=== PATIENT | male | born 1935 | race Caucasian/White ===

== ENCOUNTER → 2018-05-15 08:33 | Day surgery (SDC) | payer MEDICARE ==
[~2018-05-15 08:33] MED LIST: Heparin 2 UNITS/ML IVPREMIX* 2,000 ML IV ONE; Heparin(*) 1000 UNIT/ML 10 ML VIAL CATH LAB IV ONE; Iohexol 350 (CONTRAST) 200 ML MDV IV ONE; Lidocaine 1% INJ* 10 MG/ML 30 ML SDV ONE; Midazolam* 1 MG/ML 10 ML VIAL (10 MG) ONE; NS 0.9% 1000 ML* 1,000 ML IV SCH; VERAPAMIL 2.5 MG/ML 2 ML VIAL ** 5 mg/2 ml ONE; fentaNYL* 50 MCG/ML 2 ML VIAL (100 MCG VIAL) ONE; nitroGLYCERIN DRIP* 25,000 MCG/250 ML BTL ONE
[2018-05-15 09:45] LABS: EGFR Non-African American 65.1 (>60)
[2018-05-15 10:20] LABS: Hematocrit 44 % (42-52); Mean Corpuscular HGB Conc 34 g/dl (31-36); Mean Corpuscular Hemoglobin 32 pg (27-31); Mean Corpuscular Volume 94 fL (80-94); Mean Platelet Volume 10.5 um3 (7.4-10.4); Platelet Count 163 10^3/ul (150-450); Red Blood Count 4.68 10^6/ul (4.00-5.40); Red Cell Distribution Width 13 % (10.5-15); White Blood Count 5.9 10^3/ul (3.5-10.8)
[2018-05-15 13:59] VITALS: BP 147/88
--- NOTE | 2018-05-18 04:07 | CATH ---
CC: Earl Campbell MD; Dr. Evangelista; Dr. Dominguez * CATH REPORT: DATE OF PROCEDURE: 05/15/18 - [facility] CATH PRIMARY CARE PHYSICIAN: Earl Campbell MD E BUSINESS SPECIALIST: Dr. Evangelista and Dr. Dominguez, [facility]. PROCEDURES: Right radial artery access, bilateral selective coronary cineangiography. HISTORY: An 83-year-old male with symptomatic severe aortic stenosis, referred for coronary angiography prior to TAVR. PROCEDURE ACCESS: Right radial artery sheath 6-F slender. MEDICATIONS: 1. Subcu lidocaine. 2. IV Versed. 3. IV fentanyl. 4. Heparin 3000 units. 5. Verapamil 3 mg. 6. Nitroglycerin 300 mcg. DIAGNOSTIC CATHETER: 5F TIG4. HEMODYNAMICS: Initial AO 101/68. Final BP 137/84. ANGIOGRAPHY: Right forearm. There was some resistance of the J wire, injection showed no stenosis or loop, this was easily traversed with a Wholey wire. RCA: The RCA is large, dominant, with proximal luminal irregularity, mid RCA has some ectasia, the RCA has at most 40% stenosis on a 90-degree bend proximally. The PDA is a small followed by a large posterolateral. Incidentally noted is a heavy calcification of the aortic leaflets. Left Main: The left main is large, short, has no stenosis. LAD: The LAD is large, extends past the apex, supplies the inferoapical segment , supplies a small to moderate first diagonal, the LAD has scattered luminal irregularity, but no significant stenosis. Circumflex: The circumflex is large, not dominant with a small ramus, a large first marginal, and ends with a small posterolateral. The circumflex has no stenosis. CONCLUSION: 1. No significant obstructive coronary artery disease. 2. Normal left-sided hemodynamics. 3. Successful right radial artery access. [id number]/[facility] #: [id number] [facility]
== END | disposition home or self-care (01) ==
LOC: CHICATH 08:33
PROVIDERS: ATTEND Internal Medicine Cardiovascular Disease
DX: I35.0 Nonrheumatic aortic (valve) stenosis (principal); I11.0 Hypertensive heart disease with heart failure; I50.32 Chronic diastolic (congestive) heart failure; R53.83 Other fatigue; Z87.891 Personal history of nicotine dependence
CPT/HCPCS: 36415; 80053; 85027; 93454; 99156; J1644; J2250; J3010

== ENCOUNTER 2018-06-11 11:09 | Emergency (ER) | payer MEDICARE ==
--- OUTSIDE RECORDS SUMMARY | 2018-06-11 11:15 | XMS REPORT ---
:1935 External Reference #:[id number] Author Organization [employer] Address [address] [place] [address] [place] [address] Phone [phone] Care Team Providers Name Role Phone Earl Campbell MD Primary Care Physician Unavailable Payers Type Date Identification Numbers Payment Provider Subscriber Commercial Policy Number: [id number] Aetna Medicare Beto Kirby Group Number: [id number] [address] PayID: [id number] [place] [address] Medigap Part B Expires: 2016 Policy Number: [employer] Insurance Beto Kirby [id number] Group Number: [id number] [address] PayID: [id number] [place] [address] Advance Directives Type Date Description Status Comment Other Directive 04/24/2017 Health Care Proxy Current and Verified Other Directive 04/29/2005 Current and Verified Problems Date Description Provider Status Onset: 04/24/2017 Aortic valve stenosis Earl Campbell M.D., FACP Active Note: Moderate-severe Onset: 04/24/2017 Osteoarthritis of multiple joints Tami Moreno M.D., FACP Onset: 04/24/2017 Rotator cuff syndrome Tami Moreno M.D., FACP Note: RT Onset: 04/24/2017 Insomnia Earl Campbell M.D., FACP Active Onset: 04/24/2011 Diverticulitis of colon Earl Campbell M.D., FACP Active Note: history of Onset: 04/24/2017 Obstructive sleep apnea Earl D. Willard, M.D.,FACP Active syndrome Note: oral device in past Onset: 04/24/2017 Glaucoma Earl Campbell M.D.,FACP Active Onset: 04/24/2017 Ex-smoker Earl Campbell M.D.,FACP Active Note: quit 1977 Onset: 04/24/2017 Raised prostate specific Earl Campbell M.D.,FACP Active antigen Note: 4.8 Onset: 10/27/2017 Metatarsalgia Faustino Ruiz MD Active Onset: 10/27/2017 Tendon contracture Faustino Ruiz MD Active Onset: 10/27/2017 Hammer toe Faustino Ruiz MD Active Onset: 12/05/2017 Asthma Earl Campbell M.D.,FACP Active Note: on PFTs Family History Date Family Member(s) Problem(s) Comments Father due to COPD () Father 73 Mother due to Unknown Causes () Mother 85 Siblings 2 : (age 72 Years) First Brother due to Liver Cancer Onset: (age 81 Years) First Sister Lyme Disease Social History Type Date Description Comments Marital Status Lives With 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 Cigarette Use Former Cigarette Smoker ETOH Use Drinks 2 Alcoholic 1 beer and 1 shot of Beverages Per Day vodka Smoking Patient is a former smoker Recreational Drug Use 04/24/2017 Denies Drug Use Daily Caffeine 04/24/2017 Consumes on average 1 cup double espresso of regular coffee per day Exercise Type/Frequency Moderate exercise gym, 2x/week- 1.5 hours per session General Hx Text 2 kids, alive and well Allergies, Adverse Reactions, Alerts Date Description Reaction Status Severity Comments 04/24/2017 NKDA active Medications Medication Date Status Form Strength Qnty SIG Indications Ordering Provider Imipramine HCL 05/07 Active Tablets 25mg 45tab 1/2-1 tab s po qhs prn Demi Campbell, insomnia Jaswant,FACP Proventil HFA 12/05 Active Aerosol 108(90Bas 18uni inhale two e) ts puffs by Demi Campbell, mcg/Act mouth four M.DElsi,FACP times a day as needed Shingrix 11/28 Active Suspension 50mcg 2unit 0.5 2018 Rec s milliliters beatris Booneuscaryan Michaud,FACP ar now and 2-3 months later repeat Toprol XL 06/27 Active Tablets ER 25mg 90tab 1 by mouth I35.0 Tania 24HR s every day Jaswant Brown [place]-3 & 04/24 Active Chewtabs 117-100mg daily Earl Vitamin D3 /2017 -Unit Delisa Boone M.D.,FACP Vitamin B12 Active Tablets ER 1000mcg 1 by mouth Unknown /0000 every other day Flax Seed Oil Active Capsules 1000mg 1 by mouth Unknown /0000 every day Vitamin C Plus Active Tablets 1000mg 1 by mouth Unknown /0000 every day Ginseng Active Capsules 250mg daily Unknown /0000 Centrum Silver Active Tablets Adult 50 1 by mouth Unknown Adult 50+ /0000 every day Aspirin Active Tablets DR 81mg 1 by mouth Unknown /0000 every day Turmeric Active Capsules 450mg daily Unknown /0000 Glucosamine Active Capsules 1500Com 1 cap by Unknown Chondroitin 1500 /0000 mouth every Complex day Probiotic Active Capsules 1 by mouth Unknown /0000 every day Tums Active Chewtabs 500mg 1-2 Unknown /0000 chewtabs by mouth as needed, Betaxolol HCL Active Solution 0.5% 1 drop both Unknown /0000 eyes daily Latanoprost Active Solution 0.005% one drop Unknown /0000 daily in each eye CBD Oil Active 20mg capsule Unknown /0000 daily Valerian Root Active Capsules 250mg 1 cap po Unknown /0000 daily Diphenhydramine Active Capsules 25mg one capsule Unknown HCL /0000 as needed for sleep Magnesium Oxide Active Tablets 400mg 1 by mouth Unknown /0000 every day Clopidogrel Active Tablets 75mg Take One Unknown Bisulfate /0000 Tablet By Mouth Every Day Pantoprazole Active Tablets DR 40mg Take One Unknown Sodium /0000 Tablet By Mouth Every Day Tylenol Active Capsules 325mg 2 tablets Unknown /0000 po at bedtime Cod Liver Oil Active 1 cap po Unknown /0000 daily Garlic Active 1 tablet po Unknown /0000 daily Doxycycline 05/22 Hx Tablets 100mg 20tab 1 by mouth Earl Hyclate s twice a day Demi Campbell - Jaswant,[facility] 12/29 Levitra 10/30 Hx Tablets 10mg 14tab by mouth F52.21 s every day Demi Campbell, - as needed M.D.,[facility] 11/30 Rozerem 10/30 Hx Tablets 8mg 30tab 1 by mouth F51.01 s every night Demi Campbell, - at bedtime Jaswant,[facility] 11/30 as needed /2017 for insomnia Saw Gunpowder 10/30 Hx Capsules 450mg 60cap 1 by mouth R97.20 s twice a day Demi Campbell, - Jaswant,[facility] 11/30 Amoxicillin/Clav 09/12 Hx Tablets 875-125mg 20tab by mouth J01.10 Beto Froilan ulanate s twice a day Demi Campbell, Potassium - Jaswant,[facility] 09/22 Mucinex DM 09/12 Hx Tablets ER 30-600mg 14tab 1 by mouth 12HR s twice a day Demi Campbell, - as needed M.D.,[facility] 05/07 [place] 3 Hx Capsules 1000mg 1 tab by Unknown /0000 mouth every - day 05/07 Calcium Hx Tablets 300-300mg daily Unknown Magnesium 750 /0000 - 10/30 Trazodone HCL Hx Tablets 100mg 90tab 1 tabs by Earl / s mouth as Demi Campbell, - needed for M.D.,[facility] 05/07 sleep Advil Hx Capsules 200mg 1-2 bid as Unknown /0000 needed (pt - takes 2 06/06 night) Benadryl Allergy Hx Capsules 25mg as needed F51.01 Unknown /0000 (pt takes 1 - every 10/30 night) /2017 Immunizations CPT Code Status Date Vaccine Lot # [id number] Given 05/07/2018 Influenza Virus Vaccine, Quadrivalent, Split, [id number] Preservative Free 44999 Given 10/30/2017 Pneumococcal Conjugate Vaccine 13 Valent For [id number] Intramuscular Use 18483 Given 04/24/2017 Influenza Virus Vaccine, Quadrivalent, Split, [id number] Preservative Free 16462 Given 04/05/2010 Tetanus And Diptheria (Td) For Adult Use Preservative Free 18003 Given 09/14/2007 Pneumonia Vaccine Vital Signs Date Vital Result Comment 06/07/2018 Height 67.5 inches 5'7.50" Weight 171.00 lb with shoes Heart Rate 82 /min BP Systolic Sitting 128 mmHg Lue reg cuff BP Diastolic Sitting 80 mmHg Lue reg cuff BP Systolic Standing 124 mmHg Lue reg cuff BP Diastolic Standing 80 mmHg Lue reg cuff Respiratory Rate 16 /min BMI (Body Mass Index) 26.4 kg/m2 05/11/2018 Height 67.5 inches 5'7.50" Weight 171.00 lb w/ shoes Heart Rate 70 /min BP Systolic Sitting 128 mmHg lue lg cuff BP Diastolic Sitting 70 mmHg lue lg cuff BP Systolic Standing 122 mmHg lue lg cuff BP Diastolic Standing 68 mmHg lue lg cuff BMI (Body Mass Index) 26.4 kg/m2 Ejection Fraction no echo/ss 05/07/2018 Height 67.5 inches 5'7.50" Weight 172.25 lb Heart Rate 73 /min BP Systolic Sitting 100 mmHg BP Diastolic Sitting 66 mmHg Body Temperature 98.6 F O2 % BldC Oximetry 95 % BMI (Body Mass Index) 26.6 kg/m2 02/02/2018 Height 67.5 inches 5'7.50" Weight 171.00 lb w/ shoes Heart Rate 80 /min BP Systolic Sitting 110 mmHg lue lg cuff BP Diastolic Sitting 66 mmHg lue lg cuff BP Systolic Standing 104 mmHg lue lg cuff BP Diastolic Standing 66 mmHg lue lg cuff Respiratory Rate 18 /min BMI (Body Mass Index) 26.4 kg/m2 Ejection Fraction 55-60% Shlomo 12/14/17 01/01/2018 Height 67.5 inches 5'7.50" Weight 176.00 lb BP Systolic 116 mmHg BP Diastolic 62 mmHg Respiratory Rate 16 /min Body Temperature 98.2 F Pain Level 0 BMI (Body Mass Index) 27.2 kg/m2 12/19/2017 Height 67.5 inches 5'7.50" Weight 176.00 lb Heart Rate 79 /min BP Systolic Sitting 120 mmHg BP Diastolic Sitting 68 mmHg Body Temperature 98.9 F O2 % BldC Oximetry 95 % BMI (Body Mass Index) 27.2 kg/m2 12/01/2017 Height 67.5 inches 5'7.50" Weight 174.00 lb w/shoes Heart Rate 76 /min BP Systolic Sitting 118 mmHg lue reg cuff BP Diastolic Sitting 78 mmHg lue reg cuff BP Systolic Standing 122 mmHg lue reg cuff BP Diastolic Standing 82 mmHg lue reg cuff Respiratory Rate 18 /min BMI (Body Mass Index) 26.8 kg/m2 Ejection Fraction >70% echo 10/09/17 10/30/2017 Height 67.5 inches 5'7.50" Weight 175.00 lb Heart Rate 73 /min BP Systolic Sitting 100 mmHg BP Diastolic Sitting 60 mmHg Body Temperature 98.0 F O2 % BldC Oximetry 96 % BMI (Body Mass Index) 27.0 kg/m2 10/27/2017 Height 69 inches 5'9" Weight 179.00 lb BP Systolic 124 mmHg BP Diastolic 68 mmHg Respiratory Rate 20 /min Body Temperature 98.2 F Pain Level 5 BMI (Body Mass Index) 26.4 kg/m2 09/12/2017 Weight 179.00 lb Heart Rate 75 /min BP Systolic Sitting 118 mmHg BP Diastolic Sitting 70 mmHg Body Temperature 98.2 F O2 % BldC Oximetry 95 % 07/28/2017 Height 69 inches 5'9" Weight 174.00 lb without shoes Heart Rate 90 /min BP Systolic Sitting 114 mmHg Rue reg cuff BP Diastolic Sitting 78 mmHg Rue reg cuff BP Systolic Standing 110 mmHg Rue reg cuff BP Diastolic Standing 80 mmHg Rue reg cuff Respiratory Rate 17 /min BMI (Body Mass Index) 25.7 kg/m2 Ejection Fraction 70-75% date 10/20/16 ECHO 05/19/2017 Height 69 inches 5'9" Weight 173.00 lb w/ shoes Heart Rate 68 /min reg BP Systolic 108 mmHg Rue, reg cuff BP Diastolic 60 mmHg Rue, reg cuff BP Systolic Sitting 110 mmHg Lue, reg cuff BP Diastolic Sitting 64 mmHg Lue, reg cuff BP Systolic Standing 144 mmHg Lue BP Diastolic Standing 60 mmHg Lue Respiratory Rate 16 /min BMI (Body Mass Index) 25.5 kg/m2 Ejection Fraction 70-75% as of 10/20/2016 echo 04/24/2017 Height 69 inches 5'9" Weight 173.38 lb Heart Rate 90 /min BP Systolic Sitting 114 mmHg BP Diastolic Sitting 68 mmHg Body Temperature 98.5 F O2 % BldC Oximetry 96 % BMI (Body Mass Index) 25.6 kg/m2 Results Test Date Test Result H/L Range Note CBC No Diff 05/29/2018 White Blood Count 7.3 10^3/uL 3.5-10.8 Red Blood Count 3.84 10^6/uL Low 4.00-5.40 Hemoglobin 12.4 g/dL Low 14.0-18.0 Hematocrit 36 % Low 42-52 Mean Corpuscular Volume 94 fL 80-94 Mean Corpuscular Hemoglobin 32 pg High 27-31 Mean Corpuscular HGB Conc 35 g/dL 31-36 Red Cell Distribution Width 13 % 10.5-15 Platelet Count 111 10^3/uL Low 150-450 Mean Platelet Volume 10.6 um3 High 7.4-10.4 Comp Metabolic Panel 05/15/2018 Sodium 135 mmol/L 135-145 Chloride 104 mmol/L 101-111 Co2 Carbon Dioxide 29 mmol/L 22-32 Glucose 100 mg/dL 70-100 Blood Urea Nitrogen 15 mg/dL 6-24 Creatinine 1.08 mg/dL 0.67-1.17 BUN/Creatinine Ratio 13.9 8-20 Calcium 9.9 mg/dL 8.6-10.3 Total Protein 6.8 g/dL 6.4-8.9 Albumin 4.3 g/dL 3.2-5.2 Globulin 2.5 g/dL 2-4 Albumin/Globulin Ratio 1.7 1-3 Total Bilirubin 0.80 mg/dL 0.2-1.0 Alkaline Phosphatase 47 U/L 34-104 Alt 13 U/L 7-52 Egfr Non- 65.1 >60 Egfr 78.8 >60 1 Potassium 4.6 mmol/L 3.5-5.0 Anion Gap 2 mmol/L 2-11 Ast 25 U/L 13-39 CBC No Diff 05/15/2018 White Blood Count 5.9 10^3/uL 3.5-10.8 Red Blood Count 4.68 10^6/uL 4.00-5.40 Hemoglobin 15.0 g/dL 14.0-18.0 Hematocrit 44 % 42-52 Mean Corpuscular Volume 94 fL 80-94 Mean Corpuscular Hemoglobin 32 pg High 27-31 Mean Corpuscular HGB Conc 34 g/dL 31-36 Red Cell Distribution Width 13 % 10.5-15 Platelet Count 163 10^3/uL 150-450 Mean Platelet Volume 10.5 um3 High 7.4-10.4 Laboratory test finding 11/02/2017 Vitamin B12 957 pg/mL High 180-914 2 TSH (Thyroid Stim Horm) 2.89 mcIU/mL 0.34-5.60 3 PSA Diagnostic 5.718 ng/mL High 0-4.000 4 Comp Metabolic Panel 11/02/2017 Sodium 139 mmol/L 139-145 Potassium 4.6 mmol/L 3.5-5.0 Chloride 105 mmol/L 101-111 Co2 Carbon Dioxide 28 mmol/L 22-32 Anion Gap 6 mmol/L 2-11 Glucose 94 mg/dL 70-100 Blood Urea Nitrogen 17 mg/dL 6-24 Creatinine 1.03 mg/dL 0.67-1.17 BUN/Creatinine Ratio 16.5 8-20 Calcium 10.2 mg/dL 8.6-10.3 Total Protein 6.2 g/dL Low 6.4-8.9 Albumin 4.1 g/dL 3.2-5.2 Globulin 2.1 g/dL 2-4 Albumin/Globulin Ratio 2.0 1-3 Total Bilirubin 0.70 mg/dL 0.2-1.0 Alkaline Phosphatase 53 U/L 34-104 Alt 12 U/L 7-52 Ast 17 U/L 13-39 Egfr Non- 69.0 >60 Egfr 88.7 >60 5 Lipid Profile (Trig/Chol/HDL) 11/02/2017 Triglycerides 72 mg/dL 6 Cholesterol 180 mg/dL 7 HDL Cholesterol 52.6 mg/dL 8 LDL Cholesterol 113 mg/dL 9 1 Because ethnic data is not always readily available, this report includes an eGFR for both -Americans and non- Americans. The National Kidney Disease Education Program (NKDEP) does not endorse the use of the MDRD equation for patients that are not between the ages of 18 and 70, are , have extremes of body size, muscle mass, or nutritional status, or are non- or non-. According to the National Kidney Foundation, irrespective of diagnosis, the stage of the disease is based on the level of kidney function: Stage Description GFR(mL/min/1.73 m(2)) 1 Kidney damage with normal or decreased GFR 90 2 Kidney damage with mild decrease in GFR 60-89 3 Moderate decrease in GFR 30-59 4 Severe decrease in GFR 15-29 5 Kidney failure <15 (or dialysis) 2 Normal Range 180 to 914 Indeterminate Range 145 to 180 Deficient Range <145 3 FASTING 10 HOUR Copy Result to: [facility] ([id number]) 4 Serum levels of PSA measured using the Velma Compumatrix DXI Hybritech immunoassay should not be interpreted as absolute evidence of the presence or absence of disease. The PSA value should be used in conjunction with other pertinent clinical diagnostic procedures. The values obtained with different assay methods or kits cannot be used interchangeably. 5 Because ethnic data is not always readily available, this report includes an eGFR for both -Americans and non- Americans. The National Kidney Disease Education Program (NKDEP) does not endorse the use of the MDRD equation for patients that are not between the ages of 18 and 70, are , have extremes of body size, muscle mass, or nutritional status, or are non- or non-. According to the National Kidney Foundation, irrespective of diagnosis, the stage of the disease is based on the level of kidney function: Stage Description GFR(mL/min/1.73 m(2)) 1 Kidney damage with normal or decreased GFR 90 2 Kidney damage with mild decrease in GFR 60-89 3 Moderate decrease in GFR 30-59 4 Severe decrease in GFR 15-29 5 Kidney failure <15 (or dialysis) 6 Desirable: <150 Borderline High: 150-199 High: 200-499 Very High: >500 7 Desirable: <200 Borderline High: 200-239 High: >239 8 Low: <40 Desirable: 40-60 High: >60 9 Desirable: <100 Near Optimal: 100-129 Borderline High: 130-159 High: 160-189 Very High: >189 Procedures Date CPT Code Description Status 05/15/2018 49690 Cath PLMT&NJX L Ventriculog Img S&I Completed 01/16/2018 09518 ECHO Stress Test Incl Perf Contiuous ekg Monitoring Completed W/Phys Superv 12/14/2017 35215 Moderate Sedation Services; Same Phys Intl 15 Mins; PT Completed >=5 Years 12/14/2017 44152 Color Flow Doppler/Interp & Reprt Completed 12/14/2017 30578 Pulse Wave/Continuous-Interp.RPT Completed 12/14/2017 62212 Echocardiography, Transesophageal, Real Time W/Image 2D Completed W/W/O M-M 12/04/2017 53355 Diffusing Capacity Completed 12/04/2017 26850 Plethysmography Determination Lung Volumes & Per Airway Completed Resist 12/04/2017 64668 Pulmonary Function><Bronchodil Completed 10/09/2017 41925 ECHO Transthoracic, Real-Time 2D With Doppler And Color Completed Flow 10/09/2017 85213 ECHO Transthoracic, Real-Time 2D With Doppler And Color Completed Flow 06/27/2017 99904 Stress Test Completed 05/19/2017 84001 EKG Tracing & Interpretation Completed 10/20/2016 75515 ECHO Transthoracic, Real-Time 2D With Doppler And Color Completed Flow 10/30/2015 32828 ECHO Transthoracic, Real-Time 2D With Doppler And Color Completed Flow 10/20/2014 39986 ECHO Transthoracic, Real-Time 2D With Doppler And Color Completed Flow Encounters Type Date Location Provider CPT E/M Dx Office Visit 06/07/2018 4:20p [facility] Tania Brown M.D. 31094 I35.0 [facility] Z95.2 R00.1 Office Visit 05/11/2018 9:20a [facility] Brown M.D. 19000 I35.0 [facility] [place] [facility] [place] R53.83 Office Visit 05/07/2018 10:20a [facility] Internal Medicine Earl Campbell, 92918 I35.0 - Humphrey Toscano M.D.,FACP S20.362A H90.3 J45.20 K57.32 M20.41 K40.90 Z23 Office Visit 02/02/2018 10:20a [facility] Tania Brown M.D. 41577 I35.0 [facility] [place] R53.83 Office Visit 01/01/2018 10:15a [facility] [place] [address] M77.41 C.M.A. M20.41 M67.01 Office Visit 12/19/2017 3:40p [facility] Internal Medicine Earl Campbell, 19835 J01.10 - Benita Michaud,FACP I35.0 Office Visit 12/01/2017 10:20a [facility] Tania Brown M.D. 99165 I35.0 [facility] [place] Office Visit 10/30/2017 10:20a [facility] Internal Medicine Earl Campbell, 36776 Z00.00 - Humphrey Toscano M.D.,FACP M77.41 I35.0 F51.01 R97.20 F52.21 R05 Z23 Z00.01 Office Visit 10/27/2017 10:00a [facility] [place] [address] M77.41 C.M.A. M67.01 M20.41 Office Visit 09/12/2017 1:40p [facility] Internal Medicine Earl Campbell, 27684 J01.10 - Benita Michaud,FACP Office Visit 07/28/2017 10:30a [facility] CHASITY Alejo 38045 I35.0 [facility] Office Visit 05/19/2017 9:40a [facility] Tania Brown M.D. 74132 I35.0 [facility] AT [facility] [place] Office Visit 04/24/2017 10:20a [facility] Internal Medicine Earl Campbell, 08204 I35.0 - Humphrey Toscano M.D.,FACP F51.01 M19.019 Z23 Plan of Care Future Appointment(s):06/29/2018 9:00 am - Nurse Visit IC at [facility] [place]/25/2018 1:00 pm - Ica ECHO Schedule at [facility]10/15/2018 10:20 am - Earl Campbell M.D.,FACP at [facility] Internal Medicine - [address]06/07/2018 - Tania Brown M.D.I35.0 Nonrheumatic aortic (valve) stenosisComments:Option of referral to cardiac rehab, call if you want to do this.OK to resume exercise gradually.Z95.2 Presence of prosthetic heart valveComments:Good function on exam, no leak heard.Follow up:Keep echo as scheduled and f/u with me after echo.Recommendations:Continue ASA and Plavix as directed by Dr Dominguez.R00.1 Bradycardia, unspecifiedComments:Normal pulse rate today, await event monitor data.
--- OUTSIDE RECORDS SUMMARY | 2018-06-11 11:15 | XMS REPORT ---
:1935 External Reference #:[id number] Author Organization [employer] Address [address] [place] [address] [place] [address] Phone [phone] Care Team Providers Name Role Phone Earl Campbell MD Primary Care Physician Unavailable Payers Type Date Identification Numbers Payment Provider Subscriber Commercial Policy Number: [id number] Aetna Medicare Beto Kirby Group Number: [id number] [address] PayID: [id number] [place] [address] Medigap Part B Expires: 2016 Policy Number: Aetna Insurance Beto Kirby [id number] Group Number: [id number] [address] PayID: [id number] [place] [address] Advance Directives Type Date Description Status Comment [...] Onset: 04/24/2017 Obstructive sleep apnea Earl D. [place], M.D.,FACP Active syndrome Note: oral device in [...] Marital Status Lives With Occupation Retired Occupation Grants Administrator Occupation Professor Cigarette Use Former Cigarette Smoker [...] four M.DElsi,FACP times a day as needed Toprol XL 06/27 Active Tablets ER 25mg 90tab 1 by mouth I35.0 Tania /2016 24HR s every day Jaswant Brown [place]-3 & 04/24 Active Chewtabs 117-100mg daily Earl Vitamin D3 /2017 -Unit Delisa Boone M.D.,[facility] Vitamin B12 Active Tablets ER 1000mcg 1 [...] Unknown /0000 chewtabs by mouth as needed, Latanoprost Active Solution 0.005% one drop Unknown /0000 daily in each eye CBD Oil Active 20mg capsule Unknown /0000 daily Valerian Root Active Capsules 250mg 1 cap po Unknown /0000 daily Magnesium Oxide Active Tablets 400mg 1 by mouth Unknown /0000 every day Clopidogrel Active Tablets 75mg Take One Unknown Bisulfate /0000 Tablet By Mouth Every Day Pantoprazole Active Tablets DR 40mg Take One Unknown Sodium /0000 Tablet By Mouth Every Day Cod Liver Oil Active 1 cap po Unknown /0000 daily Garlic Active 1 tablet po Unknown /0000 daily Coq10 Active Capsules 100mg take 1 by Unknown /0000 mouth 3 x week Vitamin C Plus Active Tablets 1000mg 1 by mouth Unknown /0000 every day Trazodone HCL Active Tablets 100mg as needed Unknown /0000 Advil Active Tablets 200mg 2 tabs 2 Unknown /0000 times a day as needed Doxycycline 12/19 Hx Tablets 100mg 20tab 1 by mouth Earl Gastelum /2017 s twice a day Brenden Boone M.D.,FACP 12/29 Shingrix 11/28 Hx Suspension 50mcg 2unit 0.5 Rec s milliliters Demi Campbell, intramuscul MJose Daniel,[facility] ar now and 2-3 months later repeat Levitra 10/30 Hx Tablets 10mg 14tab by mouth F52.21 s every day Demi Campbell, - as needed M.D.,[facility] 11/30 Rozerem 10/30 Hx Tablets 8mg 30tab 1 by mouth F51.01 s every night Demi Campbell, - at bedtime Wisam.Demi,[facility] 11/30 as needed for insomnia Saw Kidder 10/30 Hx Capsules 450mg 60cap 1 by mouth R97.20 s twice a day Demi Campbell, - M.Demi,[facility] 11/30 Amoxicillin/Clav 09/12 Hx Tablets 875-125mg 20tab by mouth J01.10 ulanate s twice a day Demi Campbell, Potassium - Jaswant,[facility] 09/22 Mucinex DM 09/12 Hx Tablets ER 30-600mg 14tab 1 by mouth 12HR s twice a day Demi Campbell, - as needed M.D.,[facility] 05/07 [place] 3 Hx Capsules 1000mg 1 tab by Unknown /0000 mouth every - day 05/07 Calcium Hx Tablets 300-300mg daily Unknown Magnesium 750 /0000 - 10/30 Vitamin C Plus Hx Tablets 1000mg 1 by mouth Unknown /0000 every day Trazodone HCL Hx Tablets 100mg 90tab 1 tabs by / s mouth as Demi Campbell, - needed for M.D.,[facility] 05/07 sleep Advil Hx Capsules 200mg 1-2 bid as Unknown /0000 needed (pt - takes 2 06/06 night) Benadryl Allergy Hx Capsules 25mg as needed F51.01 Unknown /0000 (pt takes 1 - every 10/30 night) Betaxolol HCL Hx Solution 0.5% 1 drop both Unknown /0000 eyes daily Diphenhydramine Hx Capsules 25mg one capsule Unknown HCL /0000 as needed for sleep Tylenol 00/00 Hx Capsules 325mg 2 tablets Unknown /0000 po at bedtime Immunizations CPT Code Status Date Vaccine Lot # [id number] Given 05/07/2018 Influenza Virus Vaccine, Quadrivalent, Split, [id number] Preservative Free 89517 Given 10/30/2017 Pneumococcal Conjugate Vaccine 13 Valent For [id number] Intramuscular Use 80500 Given 04/24/2017 Influenza Virus Vaccine, Quadrivalent, Split, [id number] Preservative Free 79256 Given 04/05/2010 Tetanus And Diptheria (Td) For Adult Use Preservative Free 12428 Given 09/14/2007 Pneumonia Vaccine Vital Signs Date Vital Result Comment 06/08/2018 Height 67.5 inches 5'7.50" Weight 171.00 lb Heart Rate 72 /min BP Systolic 130 mmHg BP Diastolic 72 mmHg Respiratory Rate 18 /min Body Temperature 98.7 F BMI (Body Mass Index) 26.4 kg/m2 06/07/2018 Height 67.5 inches 5'7.50" Weight 171.00 [...] Mean Platelet Volume 10.6 um3 High 7.4-10.4 CBC No Diff 05/15/2018 White Blood Count 5.9 10^3/uL 3.5-10.8 Red Blood Count 4.68 10^6/uL 4.00-5.40 Hemoglobin 15.0 g/dL 14.0-18.0 Hematocrit 44 % 42-52 Mean Corpuscular Volume 94 fL 80-94 Mean Corpuscular Hemoglobin 32 pg High 27-31 Mean Corpuscular HGB Conc 34 g/dL 31-36 Red Cell Distribution Width 13 % 10.5-15 Platelet Count 163 10^3/uL 150-450 Mean Platelet Volume 10.5 um3 High 7.4-10.4 Comp Metabolic Panel 05/15/2018 [...] 2 mmol/L 2-11 Ast 25 U/L 13-39 Laboratory test finding 11/02/2017 Vitamin B12 957 [...] 3 FASTING 10 HOUR Copy Result to: TANIA BROWN ([id number]) 4 Serum levels of PSA measured using the [employer] DXI Hybritech immunoassay should not be interpreted [...] Procedures Date CPT Code Description Status 05/15/2018 95192 Cath PLMT&NJX L Ventriculog Img S&I Completed 01/16/2018 21160 ECHO Stress Test Incl Perf Contiuous ekg Monitoring Completed W/Phys Superv 12/14/2017 17050 Moderate Sedation Services; Same Phys Intl 15 Mins; PT Completed >=5 Years 12/14/2017 70280 Color Flow Doppler/Interp & Reprt Completed 12/14/2017 91557 Pulse Wave/Continuous-Interp.RPT Completed 12/14/2017 38487 Echocardiography, Transesophageal, Real Time W/Image 2D Completed W/W/O M-M 12/04/2017 53905 Diffusing Capacity Completed 12/04/2017 30247 Plethysmography Determination Lung Volumes & Per Airway Completed Resist 12/04/2017 95526 Pulmonary Function><Bronchodil Completed 10/09/2017 93610 ECHO Transthoracic, Real-Time 2D With Doppler And Color Completed Flow 10/09/2017 14711 ECHO Transthoracic, Real-Time 2D With Doppler And Color Completed Flow 06/27/2017 81573 Stress Test Completed 05/19/2017 98289 EKG Tracing & Interpretation Completed 10/20/2016 45909 ECHO Transthoracic, Real-Time 2D With Doppler And Color Completed Flow 10/30/2015 74305 ECHO Transthoracic, Real-Time 2D With Doppler And Color Completed Flow 10/20/2014 42372 ECHO Transthoracic, Real-Time 2D With Doppler And Color Completed Flow Encounters Type Date Location Provider CPT E/M Dx Office Visit 05/11/2018 9:20a [facility] Loev Brown M.D. 30844 I35.0 [facility] [place] [facility] [place] Visit 05/07/2018 10:20a [facility] Internal Medicine Earl Campbell, 03004 I35.0 - [place] Everton Michaud,FACP S20.362A H90.3 J45.20 K57.32 M20.41 K40.90 Z23 Office Visit 02/02/2018 10:20a [facility] Of Tania Brown M.D. 93035 I35.0 [facility] [place] [facility] [place] Office Visit 01/01/2018 10:15a [facility] [place] [address] M77.41 C.M.A. M20.41 M67.01 Office Visit 12/19/2017 3:40p [facility] Internal Medicine Earl Campbell, 38163 J01.10 - Benita Michaud,FACP I35.0 Office Visit 12/01/2017 10:20a [facility] Of Tania Brown M.D. 98942 I35.0 [facility] [place] [facility] [place] 10/30/2017 10:20a [facility] Internal Medicine Earl Campbell, 92262 Z00.00 - [place] Everton Michaud,FACP M77.41 I35.0 F51.01 R97.20 F52.21 R05 Z23 Z00.01 Office Visit 10/27/2017 10:00a [facility] [place] [address] M77.41 C.M.A. M67.01 M20.41 Office Visit 09/12/2017 1:40p [facility] Internal Medicine Earl Campbell, 23446 J01.10 - Benita Michaud,FACP Office Visit 07/28/2017 10:30a [facility] Of CHASITY Alejo 17335 I35.0 [facility] Office Visit 05/19/2017 9:40a [facility] Of Tania Brown M.D. 43863 I35.0 [facility] [place] [facility] [place] 04/24/2017 10:20a [facility] Internal Medicine Earl Campbell, 51342 I35.0 - [place] Ever[place] Michaud,FACP F51.01 M19.019 Z23 Plan of Care Future Appointment(s):06/29/2018 9:00 am - Nurse Visit IC at [facility] [place] [facility] [place] 1:00 pm - Ica ECHO Schedule at [facility]10/15/2018 10:20 am - Earl Campbell M.D.,FACP at [facility] Internal Medicine - [address]06/08/2018 - Shubham Perez, MDR22.9 Localized swelling, mass and lump, unspecifiedNew Xrays:US Soft Tissue
--- OUTSIDE RECORDS SUMMARY | 2018-06-11 11:15 | XMS REPORT ---
:1935 External Reference #:[id number] Author Organization [employer] Address [address] [place] [address] [place] [address] Phone [phone] Care Team Providers Name Role Phone Earl Campbell MD Primary Care Physician Unavailable Payers Type Date Identification Numbers Payment Provider Subscriber Commercial Policy Number: MEBMSLTT Aetna Medicare Beto Kirby Group Number: [id number] [address] PayID: [id number] [place] [address] Medigap Part B Expires: 2016 Policy Number: Aetna Insurance Beto Kirby [id number] Group Number: [id number] [address] PayID: [id number] [place] [address] Advance Directives Type Date Description Status Comment [...] Onset: 04/24/2017 Obstructive sleep apnea Earl D. 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 Use Former Cigarette Smoker [...] Tania 24HR s every day Jaswant Brown [place]-3 & 04/24 Active Chewtabs 117-100mg daily Earl [...] s twice a day Demi Campbell - Jaswant,[facility] 12/29 Levitra 10/30 Hx Tablets 10mg 14tab by mouth F52.21 s every day Demi Campbell, - as needed M.D.,[facility] 11/30 Rozerem 10/30 Hx Tablets 8mg 30tab 1 by mouth F51.01 s every night Demi Campbell, - at bedtime Jaswant,[facility] 11/30 as needed /2017 for insomnia Saw Carlisle 10/30 Hx Capsules 450mg 60cap 1 by mouth R97.20 s twice a day Demi Campbell, - Jaswant,[facility] 11/30 Amoxicillin/Clav 09/12 Hx Tablets 875-125mg 20tab by mouth J01.10 Beto Froilan ulanate s twice a day Demi Campbell, Potassium - Jaswant,[facility] 09/22 Mucinex DM 09/12 Hx Tablets ER 30-600mg 14tab 1 by mouth 12HR s twice a day Demi Campbell, - as needed M.D.,[facility] 05/07 [place] 3 Hx Capsules 1000mg 1 tab by Unknown /0000 mouth every - day 05/07 Calcium Hx Tablets 300-300mg daily Unknown Magnesium 750 /0000 - 10/30 Trazodone HCL Hx Tablets 100mg 90tab 1 tabs by Earl / s mouth as Demi Campbell, - needed for M.D.,[facility] 05/07 sleep Advil Hx Capsules 200mg 1-2 bid as Unknown /0000 needed (pt - takes 2 06/06 night) Benadryl Allergy Hx Capsules 25mg as needed F51.01 Unknown /0000 (pt takes 1 - every 10/30 night) /2017 Immunizations CPT Code Status Date Vaccine Lot # [id number] Given 05/07/2018 Influenza Virus Vaccine, Quadrivalent, Split, [id number] Preservative Free 20756 Given 10/30/2017 Pneumococcal Conjugate Vaccine 13 Valent For [id number] Intramuscular Use 50021 Given 04/24/2017 Influenza Virus Vaccine, Quadrivalent, Split, [id number] Preservative Free 90578 Given 04/05/2010 Tetanus And Diptheria (Td) For Adult Use Preservative Free 05514 Given 09/14/2007 Pneumonia Vaccine Vital Signs Date [...] 10 HOUR Copy Result to: VAN BROWNN ([id number]) 4 Serum levels of PSA measured using the [employer] DXI Hybritech immunoassay should not be interpreted [...] Procedures Date CPT Code Description Status 05/15/2018 84412 Cath PLMT&NJX L Ventriculog Img S&I Completed 01/16/2018 65124 ECHO Stress Test Incl Perf Contiuous ekg Monitoring Completed W/Phys Superv 12/14/2017 75480 Moderate Sedation Services; Same Phys Intl 15 Mins; PT Completed >=5 Years 12/14/2017 51894 Color Flow Doppler/Interp & Reprt Completed 12/14/2017 80510 Pulse Wave/Continuous-Interp.RPT Completed 12/14/2017 42775 Echocardiography, Transesophageal, Real Time W/Image 2D Completed W/W/O M-M 12/04/2017 62165 Diffusing Capacity Completed 12/04/2017 99586 Plethysmography Determination Lung Volumes & Per Airway Completed Resist 12/04/2017 66996 Pulmonary Function><Bronchodil Completed 10/09/2017 02399 ECHO Transthoracic, Real-Time 2D With Doppler And Color Completed Flow 10/09/2017 49181 ECHO Transthoracic, Real-Time 2D With Doppler And Color Completed Flow 06/27/2017 09801 Stress Test Completed 05/19/2017 41611 EKG Tracing & Interpretation Completed 10/20/2016 39602 ECHO Transthoracic, Real-Time 2D With Doppler And Color Completed Flow 10/30/2015 64664 ECHO Transthoracic, Real-Time 2D With Doppler And Color Completed Flow 10/20/2014 26604 ECHO Transthoracic, Real-Time 2D With Doppler And Color Completed Flow Encounters Type Date Location Provider CPT E/M Dx Office Visit 05/11/2018 9:20a [facility] Tania Brown M.D. 08257 I35.0 [facility] [place] [facility] [place] Visit 05/07/2018 10:20a [facility] Internal Medicine Earl Campbell, 50656 I35.0 - [place] Toscano M.D.,FACP S20.362A H90.3 J45.20 K57.32 M20.41 K40.90 Z23 Office Visit 02/02/2018 10:20a [facility] Tania Brown M.D. 88132 I35.0 [facility] [place] [facility] [place].83 Office Visit 01/01/2018 10:15a [facility] [place] [address] M77.41 C.M.A. M20.41 M67.01 Office Visit 12/19/2017 3:40p [facility] Internal Medicine Earl Campbell, 28327 J01.10 - Benita Michaud,FACP I35.0 Office Visit 12/01/2017 10:20a [facility] Of Tania Brown M.D. 20581 I35.0 [facility] [place] [facility] [place] 10/30/2017 10:20a [facility] Internal Medicine Earl Campbell, 94400 Z00.00 - [place] Everton Michaud,FACP M77.41 I35.0 F51.01 R97.20 F52.21 R05 Z23 Z00.01 Office Visit 10/27/2017 10:00a [facility] [place] [address] M77.41 C.M.A. M67.01 M20.41 Office Visit 09/12/2017 1:40p [facility] Internal Medicine Earl Campbell, 69164 J01.10 - Benita Michaud,FACP Office Visit 07/28/2017 10:30a [facility] Of CHASITY Alejo 95269 I35.0 [facility] Office Visit 05/19/2017 9:40a [facility] Of Tania Brown M.D. 43502 I35.0 [facility] [place] [facility] [place] 04/24/2017 10:20a [facility] Internal Medicine Earl Campbell, 73950 I35.0 - Humphrey Toscano M.D.,FACP F51.01 M19.019 Z23 Plan of Care Future Appointment(s):06/29/2018 9:00 am - Nurse Visit IC at [facility] [place] [facility] [place] 1:00 pm - Ica ECHO Schedule at [facility]10/15/2018 10:20 am - Earl Campbell M.D.,FACP at [facility] Internal Medicine - [address]06/07/2018 - [...]
[2018-06-11 11:16] VITALS: BP 110/67
--- NOTE | 2018-06-11 12:13 | UC ---
Skin Complaint HPI - HPI Summary HPI Summary: 83 y/o male presents to the urgent care c/o laceration on his left lower leg s/ p slipping on the stairs and hitting a metal last 06/07/2018. Pt reports about 2 weeks ago he had a Aortic Valve repair at [facility] w/ Dr Dominguez and was Rx Plavix PO . The next day, he had an appt w/ Performance Instructor DR Lopez who cauterized his laceration and placed a bandage over. Now he has noticed the wound mildly swollen and w/ surrounding redness. Pain is mild at touch 2/10. Pt denies fever, SOB, calf pain, abdominal pain, dizziness, chest pain, N/V/D. - History of Current Complaint Chief Complaint: UCSkin Time Seen by Provider: 06/11/18 12:11 Stated Complaint: SOFT TISSUE Hx Obtained From: Patient Onset/Duration: Sudden Onset, Lasting Days - 5 days, Still Present, Worse Since - yesterday Skin Exposure Onset/Duration: Days Ago - 06/07/2018 Timing: Constant Onset Severity: Moderate Current Severity: Mild Pain Intensity: 2 Pain Scale Used: 0-10 Numeric Location: Discrete - lateral side of left lower leg wound Character: Swelling, Pain, Redness Aggravating Factor(s): Touch Alleviating Factor(s): OTC Meds Associated Signs & Symptoms: Positive: Rash - red rash around laceration w/ swelling, Drainage - discrete, Tenderness. Negative: Fever, Chills Related History: Other: - laceration w/ a metal - Allergy/Home Medications Allergies/Adverse Reactions: Allergies Allergy/AdvReac Type Severity Reaction Status Date / Time lisinopril Allergy Coughing Verified 06/11/18 11:16 losartan Allergy Coughing Verified 06/11/18 11:16 ENVIRONMENTAL Allergy MOLDS, Uncoded 06/11/18 11:16 DUST, FUNGUS Home Medications: Home Medications Cbd Oil 20 mg PO DAILY 06/11/18 [History] Clopidogrel TAB* [Plavix TAB*] 1 tab PO DAILY 06/11/18 [History Confirmed ] Cod Liver Oil 1 dose PO DAILY 06/11/18 [History Confirmed 06/11/18] Flaxseed Oil [[place]-3 Flaxseed Oil] 1 tab PO DAILY 06/11/18 [History Confirmed 06/11/18] Garlic [Odorless Garlic] 1 tab PO DAILY 06/11/18 [History Confirmed 06/11/18] Ginseng 550 mg PO DAILY 06/11/18 [History Confirmed 06/11/18] Imipramine HCl 1 tab PO DAILY 06/11/18 [History Confirmed 06/11/18] Latanoprost [Xalatan] 1 dose BOTH EYES 06/11/18 [History] Pantoprazole Sodium [Protonix] 1 tab PO DAILY 06/11/18 [History Confirmed ] Ubidecarenone [Coq10] 1 dose PO DAILY 06/11/18 [History Confirmed 06/11/18] traZODone TAB* [Desyrel TAB*] 1 tab PO DAILY 06/11/18 [History Confirmed ] Review of Systems All Other Systems Reviewed And Are Negative: Yes Constitutional: Positive: Negative Skin: Positive: Other - redness swelling and pain w/ discrete yellowish discharge on LLL Eyes: Positive: Negative ENT: Positive: Negative Respiratory: Positive: Negative Cardiovascular: Positive: Negative Gastrointestinal: Positive: Negative Genitourinary: Positive: Negative Motor: Positive: Negative Neurovascular: Positive: Negative Musculoskeletal: Positive: Other: - LLL s/p laceration Neurological: Positive: Negative Psychological: Positive: Negative Is Patient Immunocompromised?: No PMH/Surg Hx/FS Hx/Imm Hx Previously Healthy: Yes Cardiovascular History: Hypertension Other Cardiovascular History: Aortic Valve replacement GI/ History: Gastroesophageal Reflux - Surgical History Surgical History: Yes Surgery Procedure, Year, and Place: Bilateral hand surgeries THUMBS TRAPEZIUM AND ARTHRITIS( NO METAL), L ankle ORIF(PLATE AND SCREWS), R shoulder ROTATOR CUFF REPAIR, CORRECTIVE VISION REPAIR, CATARACT REPAIR BILATERAL - Family History Known Family History: Positive: Cardiac Disease - Social History Occupation: Retired Lives: With Family Alcohol Use: Daily Alcohol Amount: 3 drinks Substance Use Type: None Smoking Status (MU): Former Smoker Type: Cigarettes Amount Used/How Often: PACK A DAY Have You Smoked in the Last Year: No When Did the Patient Quit Smoking/Using Tobacco: 1977 - Immunization History Hx Tetanus, Diphtheria Vaccination: Yes Physical Exam - Summary Physical Exam Summary: Vital Signs Reviewed: Yes General: well developed, well nourished old male sitting in the examining table w/o any apparent distress. Eyes: Positive: Conjunctiva Clear - PERRLA, EOMI ENT: Positive: Normal ENT inspection, Hearing grossly normal, Pharynx normal, TMs normal Neck: Positive: Supple, Nontender, No Lymphadenopathy Respiratory: Positive: Chest nontender, Lungs clear, Normal breath sounds Cardiovascular: Positive: RRR, No Murmur, Pulses Normal Abdomen Description: Positive: Nontender, No Organomegaly, Soft. Negative: CVA Tenderness (R), CVA Tenderness (L) Bowel Sounds: Positive: Present Musculoskeletal: Positive: Strength Intact, ROM Intact, No Edema Neurological Exam: Normal Psychological Exam: Normal Skin: Positive: rashes - lateral distal side of LLL w/ superficial irregular laceration w/ surrounding erythema, mild swelling and discrete yellowish drainage observed, warm to touch, mild tender to palpation about 3.5cm x/2.0cm in size. Sher's sign negative. FROM of Left lower extremity, pulses WNL, capillary refill brisk, sensation WNL. Triage Information Reviewed: Yes Vital Signs: Initial Vital Signs Temp 98.5 F 06/11/18 11:13 Pulse 81 06/11/18 11:13 Resp 18 06/11/18 11:13 BP 110/67 06/11/18 11:13 Pulse Ox 92 06/11/18 11:13 Course/Dx - Course Course Of Treatment: 83 y/o male presents to the urgent care c/o laceration on his left lower leg s/p slipping on the stairs and hitting a metal last 06/07/2018. Pt reports about 2 weeks ago he had a Aortic Valve repair at [facility] w/ Dr Dominguez and was Rx Plavix PO . The next day, he had an appt w/ Performance Instructor DR Lopez who cauterized his laceration and placed a bandage over. Now he has noticed the wound mildly swollen and w/ surrounding redness. Pain is mild at touch 2/10. Pt denies fever, SOB, calf pain, abdominal pain, dizziness, chest pain, N/V/D. Hx obtained. Pt w/ cellultis s/p superficial irregular laceration in the lateral side of distal left lower leg on examination. Pt is hemodynamically stable, O2SAt: 92%, patient is w/o any respiratory distress . Pt states that is his normal. he is even laughing. Repeat O2SAt:95%. Wound culture taken and sent to lab to r/o MRSA. Wound cleaned w/ iodine swabs 3X and bacitracin oint applied and covered w/ sterile dressing. Pt Rx Keflex PO and bacitracin oint. Advised if rash doubles in size and if she develops fever to go to the ER for further treatment. Advised wound re-check in 2 days w/ PCP or at the [facility] to make sure symptoms are improving. D/C instructions explained. Pt understood and agreed. Pt left clinic hemodynamically stable, A&OX3 - Differential Diagnoses - Skin Complaint Differential Diagnoses: Abscess, Cellulitis, Contact Dermatitis, Local Allergic Reaction, MRSA - Diagnoses Provider Diagnoses: 1- left lower leg cellulitis s/p laceration Discharge - Sign-Out/Discharge Documenting (check all that apply): Patient Departure - D/C home All imaging exams completed and their final reports reviewed: No Studies - Discharge Plan Condition: Stable Disposition: HOME Prescriptions: Bacitracin OINTMENT* 1 applic TOPICAL TID #1 tube Cephalexin CAP* [Keflex CAP*] 500 mg PO QID #28 cap Patient Education Materials: Cellulitis (ED) Referrals: Earl Campbell MD [Primary Care Provider] - 3 Days Additional Instructions: 1-Please take full course of Antibiotic. Please apply Bacitracin Oint on affected area as directed. 2- If redness and swelling doubles in size after 48 hrs of taking antibiotic and fever develops please go to the ER immediately. 3-Avoid standing for long periods of time or flexing your foot, keep it elevated and keep wound clean and dry. 4-Please F/u with your PCP in 3 days for further evaluation and treatment. - Billing Disposition and Condition Condition: STABLE Disposition: Home - Attestation Statements Provider Attestation: Per institutional requirements, I have reviewed the chart, however, I was not consulted specifically or made aware of this patient by the midlevel provider. I did not personally evaluate, interact with , or disposition this patient.
--- NOTE | 2018-06-12 10:18 | UC ---
- Progress Note Progress Note: Rx bacitracin / cephalexin 06/11/18. Cx pending. Discharge - Sign-Out/Discharge Documenting (check all that apply): Post-Discharge Follow Up All imaging exams completed and their final reports reviewed: No Studies - Discharge Plan Condition: Stable Disposition: HOME Prescriptions: Bacitracin OINTMENT* 1 applic TOPICAL TID #1 tube Cephalexin CAP* [Keflex CAP*] 500 mg PO QID #28 cap Patient Education Materials: Cellulitis (ED) Referrals: Earl Campbell MD [Primary Care Provider] - 3 Days Additional Instructions: 1-Please take full course of Antibiotic. Please apply Bacitracin Oint on affected area as directed. 2- If redness and swelling doubles in size after 48 hrs of taking antibiotic and fever develops please go to the ER immediately. 3-Avoid standing for long periods of time or flexing your foot, keep it elevated and keep wound clean and dry. 4-Please F/u with your PCP in 3 days for further evaluation and treatment. - Billing Disposition and Condition Condition: STABLE Disposition: Home
--- NOTE | 2018-06-13 17:32 | UC ---
- Progress Note Progress Note: 06/13/2018 [facility] wound culture positive for S. aureus, Pt Rx Keflex PO. Sensitivity reports shows resistance to PCN. Call patient to see if wound is improving, Thank you Janell Wolff PA-C Discharge - Sign-Out/Discharge Documenting (check all that apply): Patient Departure - D/c home All imaging exams completed and their final reports reviewed: No Studies - Discharge Plan Condition: Stable Disposition: HOME Prescriptions: Bacitracin OINTMENT* 1 applic TOPICAL TID #1 tube Cephalexin CAP* [Keflex CAP*] 500 mg PO QID #28 cap Patient Education Materials: Cellulitis (ED) Referrals: Earl Campbell MD [Primary Care Provider] - 3 Days Additional Instructions: 1-Please take full course of Antibiotic. Please apply Bacitracin Oint on affected area as directed. 2- If redness and swelling doubles in size after 48 hrs of taking antibiotic and fever develops please go to the ER immediately. 3-Avoid standing for long periods of time or flexing your foot, keep it elevated and keep wound clean and dry. 4-Please F/u with your PCP in 3 days for further evaluation and treatment. - Billing Disposition and Condition Condition: STABLE Disposition: Home
== END 2018-06-11 13:05 | disposition home or self-care (01) ==
LOC: UCEAST 11:09
DX: L03.116 Cellulitis of left lower limb (principal); S81.812D Laceration without foreign body, left lower leg, subsequent encounter; I10 Essential (primary) hypertension; K21.9 Gastro-esophageal reflux disease without esophagitis; Z88.8 Allergy status to other drugs, medicaments and biological substances; Z91.048 Other nonmedicinal substance allergy status; Z79.899 Other long term (current) drug therapy; Z79.02 Long term (current) use of antithrombotics/antiplatelets; Z87.891 Personal history of nicotine dependence; W01.10XD Fall on same level from slipping, tripping and stumbling with subsequent striking against unspecified object, subsequent encounter
CPT/HCPCS: 87070; 87077; 87186; 87205; 99212; G0463

== ENCOUNTER 2021-04-20 10:44 | Observation (INO) ==
[2021-04-20 17:43] LABS: ABS Basophils 0.1 10^3/ul (0-0.2); ABS Eosinophils 0.1 10^3/ul (0-0.6); ABS Lymphocytes 0.8 10^3/ul (1.0-4.8); ABS Monocytes 0.7 10^3/ul (0-0.8); ABS Neutrophils 5.8 10^3/ul (1.5-7.7); Hematocrit 44 % (42-52); Lymphocyte % 10.2 %; Mean Corpuscular HGB Conc 34 g/dL (31-36); Mean Corpuscular Hemoglobin 32 pg (27-31); Mean Corpuscular Volume 93 fL (80-94); Mean Platelet Volume 8.7 fL (7.4-10.4); Nucleated Red Blood Cells % 0.1; Platelet Count 131 10^3/uL (150-450); Red Blood Count 4.69 10^6 /uL (4.18-5.48); Red Cell Distribution Width 14 % (10-15); White Blood Count 7.3 10^3/uL (3.5-10.8)
[2021-04-20 18:01] LABS: Albumin 4.2 g/dL (3.2-5.2); Albumin/Globulin Ratio 1.4 (1-3); C Reactive Protein 98.52 mg/L (<8.01); Calcium 9.7 mg/dL (8.6-10.3); EGFR African American 70.7 (>60); EGFR Non-African American 58.4 (>60); Globulin 3.1 g/dL (2-4); Potassium 3.9 mmol/L (3.5-5.0); Total Bilirubin 0.6 mg/dL (0.2-1.0); Total Protein 7.3 g/dL (6.4-8.9)
[2021-04-20] MEDS ORDERED: cefTRIAXone 1 gm/50 mL NS BAG 1 GM/50 ML BAG IV ONE (18:30)
[2021-04-20 19:36] LABS: Urine Appearance Cloudy; Urine Bilirubin Negative (Negative); Urine Blood Negative (Negative); Urine Color Yellow; Urine Glucose Negative (Negative); Urine Ketones Negative (Negative); Urine Nitrite Negative (Negative); Urine Protein Negative (Negative); Urine Specific Gravity 1.014 (1.002-1.030); Urine Urobilinogen Negative (Negative)
[2021-04-20] MEDS ORDERED: Ondansetron 4 mg VIAL 2 MG/ML 2 ml VIAL IV PRN (20:22)
[2021-04-20] MEDS ORDERED: Albuterol HFA INHALER 8 gm MDI INH PRN (20:46)
[2021-04-20] MEDS ORDERED: Lactated Ringers 1000 ml BAG 1,000 ML IV SCH (21:00)
[2021-04-20] MEDS: Enoxaparin 40 MG/0.4 ML SYR SUBCUT SCH ×2 (22:42→23:03)
[2021-04-21 05:48] LABS: ABS Basophils 0.1 10^3/ul (0-0.2); ABS Eosinophils 0.1 10^3/ul (0-0.6); ABS Monocytes 0.7 10^3/ul (0-0.8); ABS Neutrophils 4.2 10^3/ul (1.5-7.7); Eosinophil % 1.4 %; Hematocrit 40 % (42-52); Hemoglobin 13.7 g/dL (14.0-18.0); Lymphocyte % 16.3 %; Mean Corpuscular HGB Conc 34 g/dL (31-36); Mean Corpuscular Hemoglobin 32 pg (27-31); Mean Corpuscular Volume 92 fL (80-94); Mean Platelet Volume 9.1 fL (7.4-10.4); Nucleated Red Blood Cells % 0.1; Platelet Count 132 10^3/uL (150-450); Red Blood Count 4.31 10^6 /uL (4.18-5.48); Red Cell Distribution Width 14 % (10-15); White Blood Count 6.1 10^3/uL (3.5-10.8)
[2021-04-21 05:55] LABS: INR 1.11 (0.86-1.15)
[2021-04-21 06:05] LABS: Albumin 3.6 g/dL (3.2-5.2); Albumin/Globulin Ratio 1.3 (1-3); C Reactive Protein 62.53 mg/L (<8.01); Calcium 8.7 mg/dL (8.6-10.3); Direct Bilirubin 0.1 mg/dL (0.03-0.18); EGFR African American 83.6 (>60); EGFR Non-African American 69.1 (>60); Globulin 2.7 g/dL (2-4); Indirect Bilirubin 0.4 mg/dL (0.3-1.0); Magnesium 1.9 mg/dL (1.9-2.7); Potassium 3.6 mmol/L (3.5-5.0); Total Bilirubin 0.5 mg/dL (0.2-1.0); Total Protein 6.3 g/dL (6.4-8.9)
[2021-04-21] MEDS ORDERED: Aspirin EC 81 mg TAB.EC (enteric coated) PO SCH (09:00)
[2021-04-21] MEDS ORDERED: Betaxolol 0.5 % OPHTH.SOLN 5 ML BOTH EYES SCH (11:30)
[2021-04-21] MEDS ORDERED: CASIRIVI/IMDEVI-MAB 600-600 MG 10 ML in NS 0.9% 100 ml BAG 100 ML IV ONE (15:46)
[2021-04-21] MEDS ORDERED: NS 0.9% 50 ML 50 ML IV ONE (16:18)
[2021-04-21 17:15] VITALS: BP 142/73
[2021-04-21] MEDS ORDERED: cefTRIAXone 1 gm/50 mL NS BAG 1 GM/50 ML BAG IVPB SCH (21:00)
== END 2021-04-22 06:59 | disposition home or self-care (01) ==
LOC: MEDTELE 10:44 → ED 10:44 → SUATTDRO 21:04 → MEDTELE 22:24
PROVIDERS: ADMIT Internal Medicine; ATTEND Hospitalist